=== PATIENT | male | born 2000 | race Two or more races ===

== ENCOUNTER 2024-07-14 11:37 | Inpatient (IN) ==
[2024-07-14] MEDS: SODIUM CHLORIDE 0.9% 1,000 ML IV SCH (11:55)
[2024-07-14 12:01] LABS: Base Excess VBG -0.5 mEq/L; HCO3 VBG 24 mmol/L; Oxygen Saturation VBG 86.7 %; PCO2 VBG 39 mmHg (38-50); PO2 VBG 49 mmHg
--- NOTE | 2024-07-14 12:02 | Emergency Department Note ---
Impression & Plan Intentional poisoning by anti-common cold drug, Suicidal overdose, Hypokalemia with normal pH ED Provider Note NAME: DEMARIO MERINO AGE: 24 SEX: M : 2000 ARRIVES VIA: Ambulance INFORMANT: Patient, EMS personnel, the police ED PROVIDER(S): Orion Sheldon DO CHIEF COMPLAINT: Overdose HPI: The patient is a 24-year-old male who is a student at [employer] who presented to the emergency department for an evaluation after an intentional overdose. The patient was last seen with friends at approximately 08 100 this morning. Then sometime between 08 110 30 the patient took an unknown amount of [id number] medications in an attempt to hurt himself. The patient sent a text message voicing his intention to some friends. They called 911. The police arrived and sewed it prehospital personnel. The patient arrived at the emergency department for further evaluation. There was no reported vomiting. The patient has been obtunded ever since and is not able to give much history. The patient took an unknown amount of melatonin 5 mg. He also took what was assumed to be 2400 mg of Unisom. The patient has no previous medical history. The patient had no seizure. There was no other medications found on scene. The patient did have a suicide note that the police brought to the emergency department. ROS: See above HPI for pertinent positives & negatives. A total of 10 systems reviewed and were otherwise negative. PAST MEDICAL HISTORY: See Below PAST SURGICAL HISTORY: See Below FAMILY HISTORY: See Below SOCIAL HISTORY: See Below HOME MEDICATIONS: See Below ALLERGIES: See Below VITALS: See Below PHYSICAL EXAMINATION: GENERAL: The patient is awake and looking around the room. He does not follow commands or answer questions. EYES: The conjunctivae are injected bilaterally. The pupils are round and reactive. There is nystagmus noted in both horizontal directions. EARS, NOSE, MOUTH AND THROAT: The nose is without any evidence of any deformity. Mucous membranes are dry. NECK: The neck is nontender and supple. RESPIRATORY: Normal respiratory effort is noted there is no evidence of wheezing rhonchi or rales CARDIOVASCULAR: Tachycardic but regular heart sounds were noted to auscultation. There is no definite murmur. GASTROINTESTINAL: The abdomen is soft. Abdomen is nontender. MUSCULOSKELETAL/EXTREMITIES: There is no evidence of gross deformity full range of motion is noted in the hips and shoulders. SKIN: There is no obvious evidence of any rash. There are no petechiae, pallor or cyanosis noted. NEUROLOGIC: Patient is awake and looking around the room. He does not answer questions. I am unable to assess orientation at this time. Patellar tendon reflexes were 1+ bilaterally. MEDICAL DECISION MAKING: The patient is a 24-year-old male who presented to the emergency department for an evaluation. The patient suffered a Benadryl overdose prior to arrival. The patient was last seen at around 08 100. He sent a text message about his intention to overdose around 10 30 this morning. He was brought to the emergency department immediately. The patient was very obtunded showing signs of Benadryl toxicity. Workup was undertaken. The patient was treated with IV fluids. He was also treated with IV Ativan and Keppra in the emergency department. He was treated with the antiseizure medications after having a seizure while CAT scan. He was further treated with IV fluid boluses. I discussed his case with Poison Control Center. They did recommend magnesium as well as potassium replacement. He was further treated with these medications. I discussed his condition with the blacksmith apprentice. He was evaluated in the emergency department by the blacksmith apprentice. I also discussed his condition with the on-call [facility] hospitalist. Triage Nursing notes reviewed. Prior medical records reviewed Vital Signs: reviewed and remarkable for tachycardia cardia. Differential diagnosis: Overdose, toxicologic, infection, hypoglycemia, electrolyte abnormalities, cardiac sources, intracerebral event, neurologic, trauma, as well as other pathologies. ER treatment provided: See below Diagnostics interpreted by me: ECG: EKG was obtained in the emergency department. My interpretation is sinus tachycardia at [address] segment abnormalities were noted. QTc was 397 ms. No previous tracing was available. A prehospital EKG was reviewed. My interpretation is sinus tachycardia at [address] abnormalities were noted. This compares similar to the tracing obtained in the emergency department. Cardiac Monitoring: An order was placed for continuous cardiac monitoring. The monitor shows a rate of 128 bpm with sinus tachycardia. Laboratory studies: As stated above and show below. Imaging studies: See below. Radiographic imaging was reviewed by myself Consultation(s): I discussed this case with Dr. Medel who is on-call for the ICU. I discussed this case with Dr. Bell who is on-call for the [facility] hospitalist group. ED COURSE: Procedures: none Critical Care: I have personally spent greater than 65 minutes of critical care time in the direct management of this patient. This includes bedside care, interpretation of diagnostic studies, and testing, discussion with consultants, patient, and family members, and other required patient management activities. This 65 minutes is in excess of all separately billable procedures. Past Med/Surg History Problem List (Updated 07/14/24 @ 16:40 by Orion Sheldon DO) Hypokalemia with normal pH (Acute) Suicidal overdose (Acute) Intentional poisoning by anti-common cold drug (Acute) Social History Smoking Status: Unknown if ever smoked Allergies Allergies Allergy/AdvReac Type Severity Reaction Status Date / Time Unable to Assess Allergy Unverified 07/14/24 13:37 Home Meds Home Medications Medication Instructions Recorded Confirmed No Known Home Medications 07/14/24 07/14/24 Results & Data (ED) Vital Signs Vital Signs - 24 hr 07/14/24 11:40 07/14/24 11:50 07/14/24 11:59 Pulse Rate 153 H 157 H Pulse Rate [Left Finger] 146 H Pulse Rate from SpO2 Sensor Pulse Rhythm Regular Regular Pulse Rhythm [Left Finger] Regular Pulse Strength [Left Finger] Normal Respiratory Rate 25 H 13 22 Respiratory Effort / Characteristics Spontaneous Non-Labored Spontaneous Respiratory Depth Normal Respiratory Pattern Regular Regular Blood Pressure 157/102 H Blood Pressure [Left Arm] 161/104 H Blood Pressure Mean 120 Blood Pressure Mean [Left Arm] 123 Blood Pressure Position [Left Arm] Sitting Pulse Oximetry 99 100 Oxygen Delivery Method Room Air Room Air Room Air Sepsis Recent Fever Within 48 Hours Yes Sepsis New/Unexplained Change in Mental Status Yes Sepsis Action Taken by Nursing No Action Required 07/14/24 12:00 07/14/24 12:15 07/14/24 12:30 Pulse Rate 142 H 149 H 149 H Pulse Rate [Left Finger] Pulse Rate from SpO2 Sensor 143 H 149 H 149 H Pulse Rhythm Pulse Rhythm [Left Finger] Pulse Strength [Left Finger] Respiratory Rate 25 H 28 H 25 H Respiratory Effort / Characteristics Respiratory Depth Respiratory Pattern Blood Pressure 161/106 H 156/117 H 156/106 H Blood Pressure [Left Arm] Blood Pressure Mean 120 119 122 Blood Pressure Mean [Left Arm] Blood Pressure Position [Left Arm] Pulse Oximetry 100 100 99 Oxygen Delivery Method Sepsis Recent Fever Within 48 Hours Sepsis New/Unexplained Change in Mental Status Sepsis Action Taken by Nursing 07/14/24 12:51 07/14/24 13:00 07/14/24 13:11 Pulse Rate 173 H 164 H 160 H Pulse Rate [Left Finger] Pulse Rate from SpO2 Sensor 165 H Pulse Rhythm Pulse Rhythm [Left Finger] Pulse Strength [Left Finger] Respiratory Rate 33 H Respiratory Effort / Characteristics Respiratory Depth Respiratory Pattern Blood Pressure 150/86 H 146/89 H Blood Pressure [Left Arm] Blood Pressure Mean 107 108 Blood Pressure Mean [Left Arm] Blood Pressure Position [Left Arm] Pulse Oximetry 93 Oxygen Delivery Method Sepsis Recent Fever Within 48 Hours Sepsis New/Unexplained Change in Mental Status Sepsis Action Taken by Nursing Laboratory Data 07/14/24 11:52 07/14/24 11:52 Lab Results 07/14/24 07/14/24 07/14/24 Range/Units 11:52 11:59 12:20 WBC 7.97 (4.8-10.8) K/ul RBC 5.43 (4.70-6.10) M/uL Hgb 16.5 (14.0-18.0) g/dl Hct 45.4 (42.0-52.0) % MCV 83.6 (80.0-100.0) fL MCH 30.4 (25.0-34.0) pg MCHC 36.3 H (32.0-36.0) g/dL RDW Std Deviation 35.1 L (36.4-46.3) fL RDW Coeff of [place] 11.6 (11.5-14.5) % Plt Count 240 (130-400) K/uL MPV 9.0 L (9.4-12.4) fL Immature Gran % (Auto) 0.1 % Neut % (Auto) 83.4 % Lymph % (Auto) 10.3 % [place] % (Auto) 5.6 % Eos % (Auto) 0.1 % Baso % (Auto) 0.5 % Neut # (Auto) 6.64 H (1.40-6.50) K/uL Lymph # (Auto) 0.82 L (1.20-3.40) K/uL [place] # (Auto) 0.45 (0.11-0.59) K/uL Eos # (Auto) 0.01 (0.00-0.50) K/uL Baso # (Auto) 0.04 (0.00-0.20) K/uL Immature Gran # (Auto) 0.01 (0.01-0.20) K/uL PT 11.7 (9.0-12.0) Seconds INR 1.1 (0.9-1.1) VBG pH 7.40 (7.36-7.41) VBG pCO2 39 (38-50) mmHg VBG pO2 49 mmHg VBG HCO3 24 mmol/L VBG O2 Saturation 86.7 % VBG Base Excess -0.5 mEq/L Sodium 141 (136-145) mmol/L Potassium 3.3 L (3.5-5.1) mmol/L Chloride 106 (98-107) mmol/L Carbon Dioxide 25 (21-32) mmol/L Anion Gap 10 (3-11) BUN 10 (6-23) mg/dl Creatinine 1.01 (0.6-1.4) mg/dl Est Cr Clr Drug Dosing Not Reportable eGFR 107.84 BUN/Creatinine Ratio 9.9 L (10-20) Glucose 105 H (70-99(Fasting)) mg/dl POC Glucose 104 H (70-99) mg/dl Calcium 9.7 (8.6-10.3) mg/dl Magnesium 2.0 (1.7-2.4) mg/dl Total Bilirubin 0.7 (0.2-1.0) mg/dl AST 17 (13-39) U/L ALT 15 (7-52) U/L Alkaline Phosphatase 64 (34-104) U/L Total Creatine Kinase 85 (30-223) U/L Troponin I High Sens < 2.3 (0-20) pg/ml Total Protein 7.8 (6.0-8.3) gm/dl Albumin 5.1 H (3.4-5.0) gm/dl Globulin 2.7 (2.5-4.0) gm/dl Albumin/Globulin Ratio 1.9 (0.9-2) Lipase 9 L (11-82) U/L Urine Color Yellow Urine Appearance Clear (Clear) Urine pH 6.5 (4.5-7.5) Ur Specific [place] 1.007 (1.000-1.030) Urine Protein Negative (Negative) Urine Glucose (UA) Negative (Negative) Urine Ketones Trace H (Negative) Urine Blood Negative (Negative) Urine Nitrite Negative (Negative) Urine Bilirubin Negative (Negative) Urine Urobilinogen Negative (Negative) Ur Leukocyte Esterase Negative (Negative) Salicylates < 3.0 L (3.0-30) mg/dl Urine Opiates Screen Neg (Neg) Ur Methadone, Qual Neg (Neg) Urine Fentanyl Screen Neg (Neg) Acetaminophen < 3 L (10-30) ug/ml Urine Barbiturates Neg (Neg) Ur Phencyclidine (PCP) Neg (Neg) U Amphetamin/Meth Scrn Neg (Neg) MDMA (Ecstasy) Screen Neg (Neg) U Benzodiazepines Scrn Neg (Neg) Ur Cocaine Metabolite Neg (Neg) U Marijuana (THC) Screen Pos H (Neg) Ethyl Alcohol mg/dL < 10.0 (<10.0) mg/dl Administered Medications Discontinued Medications Charcoal (Charcoal, Activated Liq 25 Gm/120 Ml Tube) Confirm Administered Dose 50 gm PO .STK-MED ONE Stop: 07/14/24 12:58 Last Admin: 07/14/24 13:13 Dose: 50 gm Documented By: LESLIE Sodium Chloride (Nss) 1,000 mls @ 999 mls/hr IV .Q1H1M GISELLA Stop: 07/14/24 12:45 Last Infusion: 07/14/24 13:14 Dose: Infused Documented By: Admin: 07/14/24 11:55 Dose: 999 mls/hr Documented By: LESLIE Potassium Chloride (K Levy / Wtr) 10 meq in 100 mls @ 100 mls/hr IV ONE ONE Stop: 07/14/24 13:44 Last Infusion: 07/14/24 16:16 Dose: Infused Documented By: Admin: 07/14/24 13:07 Dose: 100 mls/hr Documented By: LESLIE Sodium Chloride (Nss) 1,000 mls @ 999 mls/hr IV .Q1H1M ONE Stop: 07/14/24 13:56 Last Infusion: 07/14/24 14:11 Dose: Infused Documented By: Admin: 07/14/24 13:07 Dose: 999 mls/hr Documented By: LESLIE Sodium Chloride (Nss) 1,000 mls @ 999 mls/hr IV .Q1H1M ONE Stop: 07/14/24 13:58 Last Infusion: 07/14/24 16:16 Dose: Infused Documented By: Admin: 07/14/24 13:10 Dose: 999 mls/hr Documented By: LESLIE Magnesium Sulfate/Dextrose (Magnesium Sulfate / D5w) 1 gm in 100 mls @ 100 mls/hr IV NOW STA Stop: 07/14/24 14:00 Last Infusion: 07/14/24 16:16 Dose: Infused Documented By: Admin: 07/14/24 13:07 Dose: 100 mls/hr Documented By: LESLIE Potassium Chloride (K Levy / Wtr) 10 meq in 100 mls @ 100 mls/hr IV ONE ONE Stop: 07/14/24 14:00 Last Admin: 07/14/24 16:18 Dose: Not Given Documented By: OMKAR Levetiracetam (Levetiracetam 500 Mg/5 Ml Vial) Confirm Administered Dose 2,500 mg IV .STK-MED ONE Stop: 07/14/24 12:52 Last Admin: 07/14/24 13:13 Dose: Not Given Documented By: LESLIE Levetiracetam (Levetiracetam 500 Mg/5 Ml Vial) 2,500 mg IV NOW STA Stop: 07/14/24 12:59 Last Admin: 07/14/24 13:04 Dose: 2,500 mg Documented By: LESLIE Lorazepam (Lorazepam 1 Mg/1 Ml Syr Ed Inj Use) Confirm Administered Dose 2 mg .ROUTE .STK-MED ONE Stop: 07/14/24 12:50 Last Admin: 07/14/24 13:02 Dose: 1 mg Documented By: LESLIE Lorazepam (Lorazepam 2 Mg/1 Ml Vial) 1 mg IV NOW STA Stop: 07/14/24 13:02 Last Admin: 07/14/24 12:56 Dose: 1 mg Documented By: LESLIE Lorazepam (Lorazepam 2 Mg/1 Ml Vial) 1 mg IV NOW STA Stop: 07/14/24 14:17 Last Admin: 07/14/24 14:28 Dose: 1 mg Documented By: OMKAR Imaging Data Attestation: I personally reviewed and interpreted this imaging study as follows: My Impression: 1 view chest x-ray was obtained in the emergency department. My interpretation is no free air or definite infiltrate, final report below. CT the brain was obtained in the emergency department. My interpretation is no intracranial hemorrhage or mass effect, final report below. Radiologist's Impression: Chest X-Ray 07/14/24 11:40 XR chest 1V portable CLINICAL HISTORY: Overdose. COMPARISON STUDY: Chest radiograph July 18, 2023. FINDINGS: Lung volumes are normal. Lungs are clear. There is no pneumothorax or pleural effusion. Cardiac size is normal. Mediastinal contours are normal. There is no evidence for pulmonary edema. IMPRESSION: No acute cardiopulmonary findings. ACT 112: Negative or not required by law. Electronically signed by: Nhan Woodall M.D. 07/14/2024 1:[address] 07/14/24 12:02 CT SCAN OF THE BRAIN WITHOUT IV CONTRAST CLINICAL HISTORY: Change in mental status. COMPARISON STUDY: No priors. TECHNIQUE: Unenhanced axial CT scan of the brain is performed from the vertex to the skull base. A dose lowering technique was utilized adhering to the principles of ALARA. CT DOSE: 625.8 mGy.cm FINDINGS: Brain parenchyma: The brain parenchyma is normal in appearance. There is no hemorrhage, mass effect, or evidence of acute territorial ischemia by CT criteria. Phillips-white matter differentiation is preserved. No extra-axial fluid collection is seen. Ventricles, sulci, cisterns: Normal in configuration. Intracranial vasculature: The visualized intracranial vasculature at the skull base is normal in appearance. Calvarium: Unremarkable. Sinuses and mastoids: The visualized paranasal sinuses are clear. The mastoid air cells are well pneumatized. Orbits: The bony orbits are grossly intact. IMPRESSION: No acute intracranial abnormality. ACT 112: Negative or not required by law. Electronically signed by: Randall Tatum M.D. 07/14/2024 1:07 PM Discharge Plan Visit Data Chief Complaint: Overdose (Intentional) Stated Complaint: OVERDOSE ED Provider: Orion Sheldon Discharge Problem: Intentional poisoning by anti-common cold drug, Suicidal overdose, Hypokalemia with normal pH Patient Disposition: Admitted As Inpatient Discharge Instructions Interventions: ED Discharge Assessment Last Done: 07/14/24 13:48 Discharge Problem: Suicidal overdose Qualifiers: Encounter type: initial encounter Qualified Code(s): T50.902A - Poisoning by unspecified drugs, medicaments and biological substances, intentional self-harm, initial encounter
[2024-07-14 12:05] LABS: Basophils # (auto) 0.04 K/uL (0.00-0.20); Basophils % (auto) 0.5 %; Eosinophils # (auto) 0.01 K/uL (0.00-0.50); Eosinophils % (auto) 0.1 %; Hematocrit (blood only) 45.4 % (42.0-52.0); Hemoglobin 16.5 g/dl (14.0-18.0); Immature Granulocytes # (auto) 0.01 K/uL (0.01-0.20); Immature Granulocytes % (auto) 0.1 %; Lymphocytes # (auto) 0.82 K/uL (1.20-3.40); Lymphocytes % (auto) 10.3 %; Mean Corpuscular Hemoglobin 30.4 pg (25.0-34.0); Mean Corpuscular Hgb Conc 36.3 g/dL (32.0-36.0); Mean Corpuscular Volume 83.6 fL (80.0-100.0); Monocytes # (auto) 0.45 K/uL (0.11-0.59); Monocytes % (auto) 5.6 %; Neutrophils # (auto) 6.64 K/uL (1.40-6.50); Neutrophils % (auto) 83.4 %; Platelet Count 240 K/uL (130-400); RDW Coefficient of Variation 11.6 % (11.5-14.5); RDW Standard Deviation 35.1 fL (36.4-46.3); Red Blood Count 5.43 M/uL (4.70-6.10); White Blood Count 7.97 K/ul (4.8-10.8)
[2024-07-14 12:22] LABS: Alanine Aminotransferase 15 U/L (7-52); Albumin Globulin Ratio 1.9 (0.9-2); Albumin Level 5.1 gm/dl (3.4-5.0); Alkaline Phosphatase 64 U/L (34-104); Anion Gap 10 (3-11); Aspartate Aminotransferase 17 U/L (13-39); BUN Creatinine Ratio 9.9 (10-20); Bilirubin,Total 0.7 mg/dl (0.2-1.0); Blood Urea Nitrogen 10 mg/dl (6-23); Calcium 9.7 mg/dl (8.6-10.3); Carbon Dioxide 25 mmol/L (21-32); Chloride 106 mmol/L (98-107); Creatine Kinase 85 U/L (30-223); Globulin 2.7 gm/dl (2.5-4.0); Glucose 105 mg/dl (70-99(Fasting)); Lipase 9 U/L (11-82); Potassium 3.3 mmol/L (3.5-5.1); Sodium 141 mmol/L (136-145); Total Protein 7.8 gm/dl (6.0-8.3)
[2024-07-14 12:28] LABS: INR 1.1 (0.9-1.1); Prothrombin Time 11.7 Seconds (9.0-12.0); Troponin I High Sensitivity < 2.3 pg/ml (0-20)
[2024-07-14 12:33] LABS: Appearance Urine Clear (Clear); Bilirubin Urine Negative (Negative); Blood Urine Negative (Negative); Color Urine Yellow; Glucose Urine UA Negative (Negative); Ketones Urine Trace (Negative); Leukocyte Esterase Urine Negative (Negative); Nitrite Urine Negative (Negative); Protein Urine Negative (Negative); Specific Gravity Urine 1.007 (1.000-1.030); Urobilinogen Urine Negative (Negative); pH Urine 6.5 (4.5-7.5)
[2024-07-14 12:43] LABS: Acetaminophen < 3 ug/ml (10-30); Salicylate < 3.0 mg/dl (3.0-30)
[2024-07-14] MEDS: LORazepam 2 MG/1 ML VIAL IV STA ×3 (12:56→18:40)
[2024-07-14] MEDS: LORazepam 1 MG/1 ML SYR ED Inj Use ONE (13:02)
[2024-07-14] MEDS: levETIRAcetam 500 MG/5 ML VIAL IV STA (13:04)
[2024-07-14] MEDS: MAGNESIUM SULFATE / D5W 1 GM/100 ML BAG IV STA (13:07)
[2024-07-14] MEDS: POTASSIUM CHLORIDE / WTR 10 MEQ/100 ML PLCT IV ONE ×2 (13:07→16:18)
[2024-07-14] MEDS: SODIUM CHLORIDE 0.9% 1,000 ML IV ONE ×2 (13:07→13:10)
--- NOTE | 2024-07-14 13:09 | CT Scan Report ---
CT SCAN OF THE BRAIN WITHOUT IV CONTRAST CLINICAL HISTORY: Change in mental status. COMPARISON STUDY: No priors. TECHNIQUE: Unenhanced axial CT scan of the brain is performed from the vertex to the skull base. A d ose lowering technique was utilized adhering to the principles of ALARA. CT DOSE: 625.8 mGy.cm FINDINGS: Brain parenchyma: The brain parenchyma is normal in appearance. There is no hemorrhage, mass effect, or evidence of acute territorial ischemia by CT criteria. Phillips-white matter differentiation is preser mahamed. No extra-axial fluid collection is seen. Ventricles, sulci, cisterns: Normal in configuration. Intracranial vasculature: The visualized intracranial vasculature at the skull base is normal in appe arance. Calvarium: Unremarkable. Sinuses and mastoids: The visualized paranasal sinuses are clear. The mastoid air cells are well pneu matized. Orbits: The bony orbits are grossly intact. IMPRESSION: No acute intracranial abnormality. ACT 112: Negative or not required by law. Electronically signed by: Randall Tatum M.D. 07/14/2024 1:07 PM
--- NOTE | 2024-07-14 13:10 | XRay Report ---
XR chest 1V portable CLINICAL HISTORY: Overdose. COMPARISON STUDY: Chest radiograph July 18, 2023. FINDINGS: Lung volumes are normal. Lungs are clear. There is no pneumothorax or pleural effusion. Car diac size is normal. Mediastinal contours are normal. There is no evidence for pulmonary edema. IMPRESSION: No acute cardiopulmonary findings. ACT 112: Negative or not required by law. Electronically signed by: Nhan Woodall M.D. 07/14/2024 1:08 PM
--- NOTE | 2024-07-14 13:10 | History & Physical Report ---
Date of Service July 14, 2024 Assessment & Plan (1) Intentional poisoning by anti-common cold drug: Plan: Overdose of diphenhydramine suspected 2400mg in additional to melatonin Admit to ICU for end todal CO2 monitoring one to one Poison control contacted (2) Suicidal overdose: Plan: Consult psychiatry whenever patient more awake (3) Seizure: Plan: Lorazepam PRN, seizure protocol Seizure protocol CT head in the ER within normal limits Keppra and lorazepam given in the ER, no further Keppra recommended at this time Plan VTE Prophylaxis - deferred to ICU team Diet - NPO Disposition - admit to ICU Admission and Anticipated Discharge Date Admission Date: July 14, 2024 History of Present Illness Chief Complaint: Intentional overdose Primary Care Provider: Brandon Jamison MD Heber Blair is a 24 year old male who presents to the ER obtunded after intentional overdose of suspected 2400mg diphenhydramine (1.5 empty bottles) and unknown quantity of 5mg melatonin tablets. Unable to get any history from the patient. Per ER provider patient last see well around 8:00am this morning. Overdose occurred between 8-10am he took an overdose of medications in an attempt to harm himself with text messages voicing his intention to some friend s. 1.5 bottles of Unisom found at the scene which adds up to a total 2400mg diphenhydramine PO in addition to a melatonin 5mg PO bottle which was not empty. While in the CT in the ER the patient had a seizure. EMS also found a suicide note the patient had written. Allergies Allergy/AdvReac Type Severity Reaction Status Date / Time Unable to Assess Allergy Unverified 07/14/24 13:37 Home Medications Medication Instructions Recorded Confirmed Type No Known Home Medications 07/14/24 07/14/24 History Past Med/Surg History Problem List (Updated 07/15/24 @ 08:10 by Victor Manuel Bell MD) Seizure Hypokalemia with normal pH (Acute) Suicidal overdose (Acute) Intentional poisoning by anti-common cold drug (Acute) Social History Smoking Status: Unknown if ever smoked Review of Systems Review of Systems: Unobtainable due to reduced consciousness Physical Exam Constitutional: WD/WN, vitals as above Eyes: PERRL, conjunctivae normal, anicteric sclerae ENMT: Mouth: + dry oral mucous membranes Respiratory: normal respiratory effort, lungs clear to auscultation Cardiovascular: Rate/Rhythm: regular rhythm and + tachycardic Heart Sounds: no murmur Extremities: normal capillary refill; no calf tenderness and no pedal edema Gastrointestinal (Abdomen): normal bowel sounds, soft, nontender, no hepatosplenomegaly Skin: no rashes, warm and dry Neurologic: + confused; + does not move all extremit ies and + not awake (GCS 8 [id number]) Results & Data Results & Data Vital Signs (Past 12 Hours) Vital Signs Pulse Pulse Resp BP BP Pulse Ox O2 Del Method 07/14/24 12:30 149 H 25 H 156/106 H 99 07/14/24 12:15 149 H 28 H 156/117 H 100 07/14/24 12:00 142 H 25 H 161/106 H 100 07/14/24 11:59 146 H 22 161/104 H 100 Room Air 07/14/24 11:50 157 H 13 157/102 H 99 Room Air 07/14/24 11:40 153 H 25 H Room Air Laboratory Results Abnormal lab results 07/14/24 07/14/24 07/14/24 Range/Units 11:52 11:59 12:20 MCHC 36.3 H (32.0-36.0) g/dL RDW Std Deviation 35.1 L (36.4-46.3) fL MPV 9.0 L (9.4-12.4) fL Neut # (Auto) 6.64 H (1.40-6.50) K/uL Lymph # (Auto) 0.82 L (1.20-3.40) K/uL Potassium 3.3 L (3.5-5.1) mmol/L BUN/Creatinine Ratio 9.9 L (10-20) Glucose 105 H (70-99(Fasting)) mg/dl POC Glucose 104 H (70-99) mg/dl Albumin 5.1 H (3.4-5.0) gm/dl Lipase 9 L (11-82) U/L Urine Ketones Trace H (Negative) Salicylates < 3.0 L (3.0-30) mg/dl Acetaminophen < 3 L (10-30) ug/ml Diagnostic Findings CT SCAN OF THE BRAIN WITHOUT IV CONTRAST CLINICAL HISTORY: Change in mental status. COMPARISON STUDY: No priors. TECHNIQUE: Unenhanced axial CT scan of the brain is performed from the vertex to the skull base. A dose lowering technique was utilized adhering to the principles of ALARA. CT DOSE: 625.8 mGy.cm FINDINGS: Brain parenchyma: The brain parenchyma is normal in appearance. There is no hemorrhage, mass effect, or evidence of acute territorial ischemia by CT criteria. Phillips-white matter differentiation is preserved. No extra-axial fluid collection is seen. Ventricles, sulci, cisterns: Normal in configuration. Intracranial vasculature: The visualized intracranial vasculature at the skull base is normal in appearance. Calvarium: Unremarkable. Sinuses and mastoids: The visualized paranasal sinuses are clear. The mastoid air cells are well pneumatized. Orbits: The bony orbits are grossly intact. IMPRESSION: No acute intracranial abnormality. XR chest 1V portable CLINICAL HISTORY: Overdose. COMPARISON STUDY: Chest radiograph July 18, 2023. FINDINGS: Lung volumes are normal. Lungs are clear. There is no pneumothorax or pleural effusion. Cardiac size is normal. Mediastinal contours are normal. There is no evidence for pulmonary edema. IMPRESSION: No acute cardiopulmonary findings. Medications Administered ER Medications Given: Normal saline 1L bolus Potassium chloride 10 meq IV Lorazepam 1mg IV Normal saline 1L bolus Charcoal 50 g PO Keppra 2500mg IV Normal saline 1L bolus Magnesium sulfate 1g IV Lorazepam 1mg IV ECG Rate (beats per minute): 154 Rhythm: sinus tachycardia Findings: no acute ischemic change Comparison ECG Date: no prior available Code Status & VTE Plan Code Status Full VTE Prophylaxis Plan VTE Prophylaxis will be ordered: Yes PG Care Time/CCT Total # of Minutes Spent Total Time Spent with Patient: Total time spent is greater than 50% in coordination of care (as documented) at patient's floor/unit and/or counseling patient: Coding Level of Care Code 39807 INT INP/OBS CARE 3/75MIN Diagnoses Intentional poisoning by anti-common cold drug T48.5X2A Suicidal overdose T50.902A Encounter type: initial encounter Seizure R56.9 (2) Suicidal overdose Encounter type: initial encounter Qualified Code(s): T50.902A - Poisoning by unspecified drugs, medicaments and biological substances, intentional self-harm, initial encounter
[2024-07-14] MEDS: levETIRAcetam 500 MG/5 ML VIAL IV ONE (13:13)
[2024-07-14] MEDS: CHARCOAL, ACTIVATED LIQ 25 GM/120 ML TUBE PO ONE (13:13)
[2024-07-14 13:22] LABS: Amphetamines+Metham, Urine Neg (Neg); Barbiturates, Urine Neg (Neg); Benzodiazepine, Urine Neg (Neg); Cocaine, Urine Neg (Neg); Fentanyl, Urine Neg (Neg); MDMA (Ecstacy), Urine Neg (Neg); Marijuana, Urine Pos (Neg); Methadone, Urine Neg (Neg); Opiate, Urine Neg (Neg); Phencyclidine, Urine Neg (Neg)
[2024-07-14] MEDS ORDERED: CHARCOAL, ACTIVATED LIQ 25 GM/120 ML TUBE PO ONE (13:30)
[2024-07-14] MEDS ORDERED: LORazepam 1 MG/1 ML SYR ED Inj Use IV ONE (13:30)
--- NOTE | 2024-07-14 13:52 | Critical Care Consultation ---
Date of Consultation July 14, 2024 Assessment & Plan (1) Intentional poisoning by anti-common cold drug: Reason Critically Ill: Intentional drug overdose with intent of self-harm PLAN: Neuro: Acute encephalopathy Intentional overdose -ICU observation -Poison control contacted from emergency department -Benzodiazepines to control psychomotor agitation -Not acidotic, no elevated anion gap, salicylate and acetaminophen are negative, will repeat acetaminophen; however, acetaminophen not listed as possible ingestion Resp: End-tidal CO2 monitoring CV: Tachycardia -Benzodiazepines and fluid resuscitation Fluids/Renal: Hypokalemia: Mild -Optimize electrolytes given IV potassium chloride and magnesium sulfate ID: No indication for anti-infectives GI/Nutrition: 50 g activated charcoal given secondary to pill fragments in GI aspirate Heme: DVT prophylaxis: Subcu Lovenox Endocrine: ICU hyperglycemia protocol Vascular access: Peripheral IVs Code Status: Full code Disposition: ICU (2) Suicidal overdose: (3) Hypokalemia with normal pH: Supervising Physician Co-Signing Physician Notes I have personally spent 65 minutes of critical care time in the direct management of this patient. This is a life/limb threatening event. This includes time spent evaluating patient, direct bedside care, chart review, placing orders, interpretation of diagnostic studies, discussion with consultants, patient, and/or family members regarding treatment decisions, as well as other required patient management activities. This time is exclusive of all separately billable procedures, and teaching time and separate from and in addition to any other critical care service time. History of Present Illness Reason for Consultation: Intentional drug overdose History of Present Illness History is obtained from ED staff as well as primary care provider. 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 He has no significant medical history outside of isolated orthopedic injuries and no known prior mental health diagnoses. Please refer to emergency room notes for further details surrounding the events leading to his discovery. Briefly the patient was reportedly last seen normal at approximately 8:00 and then roughly around 10 AM the patient was noted to be sending strange text to friends indicating that he may have engaged in intentional hurtful behavior, authorities then performed a safety check and found the patient to be obtunded. Of pill bottles the patient took an unknown amount of melatonin and assumed to have consumed approximately 2400 mg of Unisom. While in the emergency department he was sent to CT scan which she reportedly had a seizure while in the CT scanner. He was brought back to the resuscitation bay and had 1 small episode of blue-colored emesis. Per report there was a suicide note left indicating this was intentional self-harm. I placed a temporary NG tube and suctioned about 250 mL of blue-colored fluid and possible pill fragments. Given possible pill fragments I instilled 50 g of activated charcoal with sorbitol and removed the NG tube. He was also tachycardic into the 170s and we administered 2 doses of 1 mg Ativan for psychomotor agitation. Allergies Allergy/AdvReac Type Severity Reaction Status Date / Time Unable to Assess Allergy Unverified 07/14/24 13:37 Home Medications Medication Instructions Recorded Confirmed Type No Known Home Medications 07/14/24 07/14/24 History Patient History Social History Smoking Status: Unknown if ever smoked Review of Systems Review of Systems: Unobtainable due to reduced consciousness Physical Exam Physical Exam: General: Glascow Coma Scale: Eyes: 4, Verbal 1, Motor 5, Total 10 Skin: Warm, dry, no perspiration Head: Atraumatic Ears, nose, mouth and throat: airway patent Cardiovascular: Normal peripheral perfusion, tachycardic S1-S2 Respiratory: no respiratory distress Gastrointestinal: Non distended Musculoskeletal: No deformity Results & Data Results & Data Vital Signs (Past 12 Hours) Vital Signs Pulse Pulse Resp BP BP Pulse Ox O2 Del Method 07/14/24 13:30 142 H 30 H 136/91 96 07/14/24 13:24 160 H 32 H 95 Room Air 07/14/24 13:11 160 H 07/14/24 13:00 164 H 33 H 146/89 H 93 07/14/24 12:51 173 H 150/86 H 07/14/24 12:30 149 H 25 H 156/106 H 99 07/14/24 12:15 149 H 28 H 156/117 H 100 07/14/24 12:00 142 H 25 H 161/106 H 100 07/14/24 11:59 146 H 22 161/104 H 100 Room Air 07/14/24 11:50 157 H 13 157/102 H 99 Room Air 07/14/24 11:40 153 H 25 H Room Air FiO2 07/14/24 13:30 07/14/24 13:24 21 07/14/24 13:11 07/14/24 13:00 07/14/24 12:51 07/14/24 12:30 07/14/24 12:15 07/14/24 12:00 07/14/24 11:59 07/14/24 11:50 07/14/24 11:40 Critical Care Results & Data Vital Signs (Past 12 Hours) Vital Signs Pulse Pulse Resp BP BP Pulse Ox O2 Del Method 07/14/24 13:48 142 H 30 H 136/91 96 Room Air 07/14/24 13:30 142 H 30 H 136/91 96 07/14/24 13:24 160 H 32 H 95 Room Air 07/14/24 13:11 160 H 07/14/24 13:00 164 H 33 H 146/89 H 93 07/14/24 12:51 173 H 150/86 H 07/14/24 12:30 149 H 25 H 156/106 H 99 07/14/24 12:15 149 H 28 H 156/117 H 100 07/14/24 12:00 142 H 25 H 161/106 H 100 07/14/24 11:59 146 H 22 161/104 H 100 Room Air 07/14/24 11:50 157 H 13 157/102 H 99 Room Air 07/14/24 11:40 153 H 25 H Room Air FiO2 07/14/24 13:48 07/14/24 13:30 07/14/24 13:24 21 07/14/24 13:11 07/14/24 13:00 07/14/24 12:51 07/14/24 12:30 07/14/24 12:15 07/14/24 12:00 07/14/24 11:59 07/14/24 11:50 07/14/24 11:40 Lab & Micro Results (Past 24 Hours) RBC 5.43 M/uL (4.70-6.10) 07/14/24 WBC 7.97 K/ul (4.8-10.8) 07/14/24 Hgb 16.5 g/dl (14.0-18.0) 07/14/24 Hct 45.4 % (42.0-52.0) 07/14/24 MCV 83.6 fL (80.0-100.0) 07/14/24 MCH 30.4 pg (25.0-34.0) 07/14/24 MCHC 36.3 g/dL (32.0-36.0) H 07/14/24 RDW Standard Deviation 35.1 fL (36.4-46.3) L 07/14/24 RDW Coefficient of Variation 11.6 % (11.5-14.5) 07/14/24 Plt Count 240 K/uL (130-400) 07/14/24 MPV 9.0 fL (9.4-12.4) L 07/14/24 Neutrophils (%) (Auto) 83.4 % 07/14/24 Lymphocytes (%) (Auto) 10.3 % 07/14/24 Monocytes # (Auto) 0.45 K/uL (0.11-0.59) 07/14/24 Eosinophils # (Auto) 0.01 K/uL (0.00-0.50) 07/14/24 Immature Granulocyte % (Auto) 0.1 % 07/14/24 Neutrophils # (Auto) 6.64 K/uL (1.40-6.50) H 07/14/24 Lymphocytes # (Auto) 0.82 K/uL (1.20-3.40) L 07/14/24 Monocytes # (Auto) 0.45 K/uL (0.11-0.59) 07/14/24 Eosinophils # (Auto) 0.01 K/uL (0.00-0.50) 07/14/24 Basophils # (Auto) 0.04 K/uL (0.00-0.20) 07/14/24 Immature Granulocyte # (Auto) 0.01 K/uL (0.01-0.20) 4 Na 141 mmol/L (136-145) 07/14/24 K 3.3 mmol/L (3.5-5.1) L 07/14/24 Cl 106 mmol/L (98-107) 07/14/24 CO2 25 mmol/L (21-32) 07/14/24 Anion Gap 10 (3-11) 07/14/24 BUN 10 mg/dl (6-23) 07/14/24 Creatinine 1.01 mg/dl (0.6-1.4) 07/14/24 BUN/Creatinine Ratio 9.9 (10-20) L 07/14/24 Glu 105 mg/dl (70-99(Fasting)) H 07/14/24 Ca 9.7 mg/dl (8.6-10.3) 07/14/24 Total Bilirubin 0.7 mg/dl (0.2-1.0) 07/14/24 AST 17 U/L (13-39) 07/14/24 ALT 15 U/L (7-52) 07/14/24 Alkaline Phosphatase 64 U/L (34-104) 07/14/24 TP 7.8 gm/dl (6.0-8.3) 07/14/24 Albumin 5.1 gm/dl (3.4-5.0) H 07/14/24 Globulin 2.7 gm/dl (2.5-4.0) 07/14/24 Albumin/Globulin Ratio 1.9 (0.9-2) 07/14/24 Mg 2.0 mg/dl (1.7-2.4) 07/14/24 11:52 Calcium Level 9.7 mg/dl (8.6-10.3) 07/14/24 11:52 Prothromb Time International Ratio 1.1 (0.9-1.1) 07/14/24 11:5 2 Venous Blood pH 7.40 (7.36-7.41) 07/14/24 11:52 Venous Blood Partial Pressure CO2 39 mmHg (38-50) 07/14/24 11:5 2 Venous Blood Partial Pressure O2 49 mmHg 07/14/24 11:52 Venous Blood HCO3 24 mmol/L 07/14/24 11:52 Venous Blood Base Excess -0.5 mEq/L 07/14/24 11:52 Venous Blood Oxygen Saturation 86.7 % 07/14/24 11:52 Diagnostic Findings (Past 24 Hours) Chest X-Ray 07/14/24 11:40 XR chest 1V portable CLINICAL HISTORY: Overdose. COMPARISON STUDY: Chest radiograph July 18, 2023. FINDINGS: Lung volumes are normal. Lungs are clear. There is no pneumothorax or pleural effusion. Cardiac size is normal. Mediastinal contours are normal. There is no evidence for pulmonary edema. IMPRESSION: No acute cardiopulmonary findings. ACT 112: Negative or not required by law. Electronically signed by: Nhan Woodall M.D. 07/14/2024 1:[address] 07/14/24 12:02 CT SCAN OF THE BRAIN WITHOUT IV CONTRAST CLINICAL HISTORY: Change in mental status. COMPARISON STUDY: No priors. TECHNIQUE: Unenhanced axial CT scan of the brain is performed from the vertex to the skull base. A dose lowering technique was utilized adhering to the principles of ALARA. CT DOSE: 625.8 mGy.cm FINDINGS: Brain parenchyma: The brain parenchyma is normal in appearance. There is no hemorrhage, mass effect, or evidence of acute territorial ischemia by CT criteria. Phillips-white matter differentiation is preserved. No extra-axial fluid collection is seen. Ventricles, sulci, cisterns: Normal in configuration. Intracranial vasculature: The visualized intracranial vasculature at the skull base is normal in appearance. Calvarium: Unremarkable. Sinuses and mastoids: The visualized paranasal sinuses are clear. The mastoid air cells are well pneumatized. Orbits: The bony orbits are grossly intact. IMPRESSION: No acute intracranial abnormality. ACT 112: Negative or not required by law. Electronically signed by: Randall Tatum M.D. 07/14/2024 1:07 PM I & O Totals 24 Hours 07/13/24 07/14/24 07/15/24 06:59 06:59 06:59 Intake Total 1000 / 1000 Balance 1000 / 1000 Cumulative 07/14/24 11:33 thru 07/14/24 13:14 Intake Total 1000 Balance 1000 RT Ventilator Mngmt (Last Documented) Ventilator Ordered Settings Respiratory Rate 30 07/14/24 13:48 Fraction of Inspired Oxygen 21 07/14/24 13:24 Ventilator - PT Measurements Respiratory Rate 30 Coding Level of Care Code 62494 CRITICAL CARE 1ST 30-74M Diagnoses Intentional poisoning by anti-common cold drug T48.5X2A Suicidal overdose T50.902A Hypokalemia with normal pH E87.6
--- NOTE | 2024-07-14 16:36 | Electrocardiogram Report ---
Test Reason : Blood Pressure : */* mmHG Vent. Rate : 154 BPM Atrial Rate : 154 BPM P-R Int : 124 ms QRS Dur : 90 ms QT Int : 248 ms P-R-T Axes : 79 75 248 degrees QTcB Int : 397 ms Sinus tachycardia Abnormal ECG No previous ECGs available Confirmed by Kartik Alex ([id number]) on 07/14/2024 4:36:09 PM Referred By: REFERRED SELF Confirmed By: Kartik Alex
[2024-07-14] MEDS: ICU Protocol for HYPERglycemia SCH (16:38)
[2024-07-14] MEDS: LORazepam 2 MG/1 ML VIAL ONE (18:39)
[2024-07-14] MEDS: LORazepam 2 MG/1 ML VIAL IV PRN (21:37)
[2024-07-15 05:22] LABS: Basophils # (auto) 0.05 K/uL (0.00-0.20); Basophils % (auto) 0.5 %; Eosinophils # (auto) 0.04 K/uL (0.00-0.50); Eosinophils % (auto) 0.4 %; Hematocrit (blood only) 42.8 % (42.0-52.0); Immature Granulocytes # (auto) 0.03 K/uL (0.01-0.20); Immature Granulocytes % (auto) 0.3 %; Lymphocytes # (auto) 1.55 K/uL (1.20-3.40); Mean Corpuscular Hemoglobin 30.2 pg (25.0-34.0); Mean Corpuscular Volume 86.1 fL (80.0-100.0); Mean Platelet Volume 9.1 fL (9.4-12.4); Monocytes # (auto) 1.32 K/uL (0.11-0.59); Monocytes % (auto) 11.9 %; Neutrophils # (auto) 8.06 K/uL (1.40-6.50); Neutrophils % (auto) 72.9 %; Platelet Count 213 K/uL (130-400); RDW Coefficient of Variation 11.9 % (11.5-14.5); RDW Standard Deviation 37.2 fL (36.4-46.3); Red Blood Count 4.97 M/uL (4.70-6.10); White Blood Count 11.05 K/ul (4.8-10.8)
[2024-07-15 05:29] LABS: Albumin Level 4.5 gm/dl (3.4-5.0); BUN Creatinine Ratio 6.4 (10-20); Bilirubin,Total 0.6 mg/dl (0.2-1.0); Calcium 9.4 mg/dl (8.6-10.3); Creatinine Clr Calc Pharmacy 100.3 ml/min; Globulin 2.3 gm/dl (2.5-4.0); Phosphorus 3.8 mg/dl (2.5-4.9); Potassium 3.4 mmol/L (3.5-5.1); Total Protein 6.8 gm/dl (6.0-8.3)
[2024-07-15] MEDS: POTASSIUM CHLORIDE / WTR 10 MEQ/100 ML PLCT IV SCH (06:21)
--- NOTE | 2024-07-15 06:44 | Critical Care Progress Note ---
Date of Service July 15, 2024 Assessment & Plan (1) Intentional poisoning by anti-common cold drug: (2) Hypokalemia with normal pH: (3) Suicidal overdose: Plan Reason Critically Ill: Intentional drug overdose with intent of self-harm PLAN: Neuro: Acute encephalopathy Intentional overdose -ICU observation -Poison control contacted from emergency department -Benzodiazepines to control psychomotor agitation -Not acidotic, no elevated anion gap, salicylate and acetaminophen are negative Resp: End-tidal CO2 monitoring CV: Tachycardia improved overnight -Benzodiazepines and fluid resuscitation Fluids/Renal: Hypokalemia: Mild -Optimized electrolytes with IV potassium chloride and magnesium sulfate on admission ID: No indication for anti-infectives GI/Nutrition: - 50 g activated charcoal given secondary to pill fragments in GI aspirate on admission - reg diet today Heme: DVT prophylaxis: Subcu Lovenox Endocrine: ICU hyperglycemia protocol Psych: Will place psych consult as pt is waking up more through this morning Vascular access: Peripheral IVs Code Status: Full code Disposition: ICU for continued monitoring Admission and Anticipated Discharge Date Admission Date: July 14, 2024 Supervising Physician Co-Signing Physician Notes Dr. Vazquez was resident physician during care of patient. I separately evaluated patient for bowman portions of the history and the exam. I was present during the critical portion of medical decision making, and I discussed the case with the resident. I generally agree with the findings and plan. Patient cleared for downgrade from ICU. Mental health consult, patient cannot leave would require 302 given intentional overdose of self-harm. Subjective Pt is a 24 yo male with no significant past medical hx who presented to the hospital on 07/14 for intentional poisoning by OTC drug ingestion. Today, pt is sleeping comfortably this morning, no acute distress. Dad is present today to give more hx. He states overnight he was agitated at times pulling at the avery/lines and having some hallucinations but was finally able to go to sleep around 5am and has been resting comfortably since then. He states that their family is from [place] and that Heber is here in [place] to go to college at [employer]. 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 His dad states that he has never had a problem with mental health in the past, has never endorsed being depressed, and was acting seemingly totally normal when he talked to them on the phone two nights ago, before this incident happened. He states that he has a transgender sister that struggled with anxiety and depression and was hospitalized a few times for mental health concerns but otherwise no family hx of anxiety, depression, suicide, drug overdose or drug misuse, or bipolar. He states that Heber has a girlfriend of 8 years and seems to have good friend support, but does note that this semester has been particularly stressful for him and notes that they are aware that he has been struggling with bullying on social media. Review of Systems Review of Systems: Unobtainable due to cognitive status Physical Exam Physical Exam: General: Asleep, resting comfortably in no acute distress Resp: Lungs clear to auscultation bilaterally, no increased work of breathing Cardio: Regular rate and rhythm, no murmurs GI: Soft and nontender, nondistended, Skin: Warm, dry, no rashes on visible skin Results & Data Results & Data Vital Signs (Past 12 Hours) Vital Signs Temp Pulse Resp BP Pulse Ox 07/15/24 03:27 36.9 C 07/15/24 03:00 71 17 99 07/15/24 02:45 62 19 98 07/15/24 02:33 82 17 98 07/15/24 02:15 74 24 98 07/15/24 02:03 85 22 96 07/15/24 02:00 144/95 H 07/15/24 02:00 144/95 H 07/15/24 02:00 144/95 H 07/15/24 01:54 82 19 97 07/15/24 01:51 86 23 97 07/15/24 01:27 92 H 23 98 07/15/24 01:03 96 H 21 100 07/15/24 01:00 158/98 H 07/15/24 01:00 158/98 H 07/15/24 00:57 75 20 97 07/15/24 00:45 95 H 24 96 07/15/24 00:39 78 19 99 07/15/24 00:27 85 17 99 07/15/24 00:03 93 H 24 99 07/15/24 00:01 142/109 H 07/15/24 00:00 147/101 H 07/14/24 23:57 74 15 98 07/14/24 23:51 73 22 99 07/14/24 23:35 87 23 99 07/14/24 23:20 76 20 97 07/14/24 23:08 75 21 97 07/14/24 23:02 142/97 H 07/14/24 23:00 37 C 07/14/24 22:59 78 19 97 07/14/24 22:47 97 H 24 98 07/14/24 22:38 76 26 H 96 07/14/24 22:17 102 H 18 98 07/14/24 22:05 80 21 98 07/14/24 22:01 169/103 H 07/14/24 22:01 169/103 H 07/14/24 21:54 100 H 14 97 07/14/24 21:50 91 H 15 98 07/14/24 21:36 94 H 21 98 07/14/24 21:15 116 H 20 97 07/14/24 21:00 98 H 22 99 07/14/24 20:24 103 H 25 H 99 07/14/24 20:15 152/102 H 07/14/24 20:09 100 H 23 100 07/14/24 20:07 37.0 C 07/14/24 20:00 168/121 H 07/14/24 20:00 105 H 30 H 100 07/14/24 20:00 168/121 H 07/14/24 20:00 168/121 H 07/14/24 19:51 104 H 18 99 07/14/24 19:46 142/105 H 07/14/24 19:39 94 H 22 97 07/14/24 19:36 101 H 17 98 07/14/24 19:30 163/106 H 07/14/24 19:21 122 H 31 H 97 07/14/24 19:15 108 H 27 H 96 07/14/24 19:12 103 H 26 H 98 07/14/24 18:48 109 H 20 97 07/14/24 18:46 173/105 H 07/14/24 18:46 173/105 H Resident Activity Tracking Resident Involvement: Resident Care Provided Care Provided: Adult Hospital Medicine (3) Suicidal overdose Encounter type: initial encounter Qualified Code(s): T50.902A - Poisoning by unspecified drugs, medicaments and biological substances, intentional self-harm, initial encounter
[2024-07-15] MEDS: ENOXAPARIN INJ 40 MG/0.4 ML SYR SQ SCH (09:44)
--- NOTE | 2024-07-15 10:43 | Electrocardiogram Report ---
Test Reason : Blood Pressure : */* mmHG Vent. Rate : 64 BPM Atrial Rate : 64 BPM P-R Int : 124 ms QRS Dur : 94 ms QT Int : 424 ms P-R-T Axes : 74 70 50 degrees QTcB Int : 437 ms Normal sinus rhythm Normal ECG When compared with ECG of 14-Jul-2024 11:47, Vent. rate has decreased by [address] elevation has replaced ST depression in Inferior leads ST no longer depressed in Lateral leads T wave inversion no longer evident in Inferior leads T wave inversion no longer evident in Lateral leads Confirmed by Kartik Alex ([id number]) on 07/15/2024 10:42:48 AM Referred By: REFERRED SELF Confirmed By: Kartik Alex
--- NOTE | 2024-07-15 11:16 | Billing Data ---
Date of Service July 15, 2024 Coding Level of Care Code 49724 SUB INP/OBS CARE
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
--- NOTE | 2024-07-15 18:50 | Electrocardiogram Report ---
Test Reason : Blood Pressure : */* mmHG Vent. Rate : 123 BPM Atrial Rate : 123 BPM P-R Int : 138 ms QRS Dur : 84 ms QT Int : 332 ms P-R-T Axes : 60 65 56 degrees QTcB Int : 475 ms Sinus tachycardia Abnormal ECG When compared with ECG of 14-Jul-2024 11:47, T wave inversion less evident in Lateral leads Confirmed by Kartik Alex ([id number]) on 07/15/2024 6:50:21 PM Referred By: REFERRED SELF Confirmed By: Kartik Alex
[2024-07-16 08:00] LABS: Basophils # (auto) 0.06 K/uL (0.00-0.20); Basophils % (auto) 0.7 %; Eosinophils # (auto) 0.18 K/uL (0.00-0.50); Eosinophils % (auto) 2.1 %; Hemoglobin 15.9 g/dl (14.0-18.0); Immature Granulocytes # (auto) 0.01 K/uL (0.01-0.20); Immature Granulocytes % (auto) 0.1 %; Lymphocytes # (auto) 2.15 K/uL (1.20-3.40); Lymphocytes % (auto) 25.7 %; Mean Corpuscular Hemoglobin 30.2 pg (25.0-34.0); Mean Corpuscular Hgb Conc 35.3 g/dL (32.0-36.0); Mean Corpuscular Volume 85.4 fL (80.0-100.0); Mean Platelet Volume 9.6 fL (9.4-12.4); Monocytes # (auto) 1.14 K/uL (0.11-0.59); Monocytes % (auto) 13.6 %; Neutrophils # (auto) 4.84 K/uL (1.40-6.50); Neutrophils % (auto) 57.8 %; Platelet Count 234 K/uL (130-400); RDW Coefficient of Variation 11.9 % (11.5-14.5); Red Blood Count 5.27 M/uL (4.70-6.10); White Blood Count 8.38 K/ul (4.8-10.8)
[2024-07-16 08:37] LABS: Magnesium 2.1 mg/dl (1.7-2.4)
[2024-07-16 08:42] LABS: Phosphorus 4.3 mg/dl (2.5-4.9)
--- NOTE | 2024-07-16 13:17 | Hospitalist Progress Note ---
Date of Service July 15, 2024 Assessment & Plan (1) Intentional poisoning by anti-common cold drug: Plan: Overdose of diphenhydramine suspected 2400mg in additional to melatonin Admitted to ICU for end todal CO2 monitoring one to one Poison control contacted On 07/15, patient was cleared medically. Awaiting placement. (2) Suicidal overdose: Plan: Consult psychiatry whenever patient more awake (3) Seizure: Plan: Lorazepam PRN, seizure protocol Seizure protocol CT head in the ER within normal limits Keppra and lorazepam given in the ER, no further Keppra recommended at this time Plan VTE Prophylaxis - deferred to ICU team Admission and Anticipated Discharge Date Admission Date: July 14, 2024 Subjective 24 yo male reports no new symptoms. Review of Systems Review of Systems: All systems reviewed & are unremarkable except as noted in HPI & below Physical Exam Constitutional: WD/WN, vitals as above Eyes: PERRL, conjunctivae normal, anicteric sclerae Cardiovascular: Rate/Rhythm: regular rate and regular rhythm Heart Sounds: no murmur Extremities: normal capillary refill; no calf tenderness and no pedal edema Gastrointestinal (Abdomen): normal bowel sounds, soft, nontender, no hepatosplenomegaly Skin: no rashes, warm and dry Results & Data Results & Data Vital Signs (Past 12 Hours) Vital Signs Temp Pulse Resp BP Pulse Ox O2 Del Method 07/16/24 09:19 36.8 C 55 L 18 108/69 99 Room Air PG Care Time/CCT Total # of Minutes Spent Total Time Spent with Patient: Total time spent is greater than 50% in coordination of care (as documented) at patient's floor/unit and/or counseling patient: Coding Level of Care Code 62501 SUB INP/OBS CARE 2/35MIN Diagnoses Intentional poisoning by anti-common cold drug T48.5X2A Suicidal overdose T50.902A Encounter type: initial encounter Seizure R56.9 (2) Suicidal overdose Encounter type: initial encounter Qualified Code(s): T50.902A - Poisoning by unspecified drugs, medicaments and biological substances, intentional self-harm, initial encounter
[2024-07-16 13:57] LABS: Marijuana Quant, GCMS Urine 37 ng/mL (<5)
--- NOTE | 2024-07-16 14:18 | Discharge Summary ---
Discharge Summary Date of Service July 16, 2024 Principal Dx & Hospital Course #1 = Principal Diagnosis (1) Intentional poisoning by anti-common cold drug: Overdose of diphenhydramine suspected 2400mg in additional to melatonin Admitted to ICU for end todal CO2 monitoring one to one Poison control contacted On 07/15, patient was cleared medically. On 07/16 Patient will be discharged pending the COVID test. (2) Suicidal overdose: Appreciate input from psych (3) Seizure: Lorazepam PRN, seizure protocol Seizure protocol CT head in the ER within normal limits Keppra and lorazepam given in the ER, no further Keppra recommended at this time Admission HPI Per Admitting Provider Heber Blair is a 24 year old male who presents to the ER obtunded after intentional overdose of suspected 2400mg diphenhydramine (1.5 empty bottles) and unknown quantity of 5mg melatonin tablets. Unable to get any history from the patient. Per ER provider patient last see well around 8:00am this morning. Overdose occurred between 8-10am he took an overdose of medications in an attempt to harm himself with text messages voicing his intention to some friends. 1.5 bottles of Unisom found at the scene which adds up to a total 2400mg diphenhydramine PO in addition to a melatonin 5mg PO bottle which was not empty. While in the CT in the ER the patient had a seizure. EMS also found a suicide note the patient had written. Discharge Exam Constitutional WD/WN, vitals as above Eyes PERRL, conjunctivae normal, anicteric sclerae Cardiovascular Rate/Rhythm: regular rate and regular rhythm Heart Sounds: no murmur Extremities: normal capillary refill; no calf tenderness and no pedal edema Gastrointestinal (Abdomen) normal bowel sounds, soft, nontender, no hepatosplenomegaly Skin no rashes, warm and dry Discharge Plan Discharge Items Patient Disposition: Transfer [facility]al [facility] Fac Reason For Visit: INTENTIONAL OVERDOSE Discharge Diagnosis: intentional overdose Activity: Resume your previous activity Non-emergency contact: Primary Care Provider Call non-emergency contact if: you have any medication questions Follow-up/Referrals: Brandon Jamison MD [Primary Care Provider] - Diet: Regular Addtl Attending Provider Instructions: Discharged to [facility]. Please follow their discharge instructions. Pending Studies at Discharge: No Stand-Alone Forms: My [facility] Medications and DC Order Prescriptions: No Action No Known Home Medications Discharge Orders: Discharge Order (Routine); Ordered 07/16/24 Ordered By: Carlos Roy Admission Data Admit Date/Time: 07/14/24 13:18 Attending Provider: Carlos Roy Admit Provider: Victor Manuel Bell Primary Care Provider: Brandon Jamison Other Providers: Victor Manuel Bell; Davian Medel; Humaira Hutchinson Hospital Stay Data Consultations 07/14/24 12:59 ED Decision to Admit Stat 07/14/24 14:15 Consult Designer Routine 07/15/24 09:33 Consult Psychiatry Routine Diagnostic Imagining Performed 07/14/24 12:02 CT head/brain wo con Stat Discharge Instructions Given to Patient (Per Discharging Provider) Discharged to [facility]. Please follow their discharge instructions. Total Time Total Time Spent Total Time Spent (In Minutes): 32 Coding Level of Care Code 36181 INP/OBS DISCH >30 MIN Diagnoses Intentional poisoning by anti-common cold drug T48.5X2A Suicidal overdose T50.902A Encounter type: initial encounter Seizure R56.9
== END 2024-07-16 16:17 | DRG 917 ==
LOC: ED 11:37 → SUATTDRO 13:18 → 1E 13:18 → 2E 07-15 18:34

== ENCOUNTER 2024-07-16 15:47 | Inpatient (IN) ==
[2024-07-16] MEDS ORDERED: MAGNESIUM HYDROXIDE SUSP 30 ML UDC PO PRN (16:01)
[2024-07-16] MEDS ORDERED: hydrOXYzine HCl 25 MG TAB PO PRN ×2 (16:01)
[2024-07-16] MEDS ORDERED: ALUMINUM/MAGNESIUM SUSP 30 ML UDC PO PRN (16:01)
[2024-07-16] MEDS ORDERED: ACETAMINOPHEN 325 MG TAB PO PRN (16:01)
[2024-07-16] MEDS ORDERED: SODIUM CHLORIDE 0.65% NA SOLN 45 ML (OCEAN) PRN (16:01)
[2024-07-16] MEDS ORDERED: BISMUTH SUBSALICYLATE 262 MG CHEW PO PRN (16:01)
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
--- NOTE | 2024-07-18 21:37 | Psychiatric Progress Note ---
Date of Service July 18, 2024 Impression / Recommendations Impression 24 yo M with MDD (single episode, severe) in the context of significant stressors, admitted following a suicide attempt via intentional overdose on estimated 2400mg of Unisom. Has good insight and expresses an appropriate amount of regret over attempt and tearfulness about recent events in his life. Patient presents as improved today with future orientation & future planning. While this is promising, would benefit from being observed to ensure that this is not a "flight back to health" and will be sustained when discharged. Overall, I spent a total of 25 minutes with this case, including review of chart, direct evaluation of the patient, counseling the patient, interdisciplinary team meeting, risk assessment, and documentation. (1) Major depressive disorder, single episode, severe: (2) Suicidal overdose: Plan 07/19/24: no changes at this time. Will obtain collateral from parents tomorrow. 07/18/24: MNPR due to recent seizure Overall I spent a total of 80 minutes for this admission including review of chart records, review of labwork, direct evaluation of the patient, counseling the patient, ordering medication, risk assessment, discussion with the psychiatric liason RN and documentation in the electronic health record. Admit to [facility] ([facility]) on q15 min checks (behavioral with suicide precautions) for safety. The patient will participate in group, recreational, and milieu therapies and will be offered additional individual and family sessions as clinically appropriate. -Defer medication as this is likely an extreme stress reaction in the context of rather significant stressors. Evidence based recommendations are to consider an SSRI trial following recurrent episodes of MDD as roughly 40%-60% of depressive episodes are a single occurrence. WOuld likely benefit more from a therapeutic approach at this time. -Seizure precautions Inventory Assets Strengths: Social supports, positive family relationships, plays team sports Needs: safety and stabilization, additional coping skills, increased outpatient services Suicide Risk Level Suicide Risk Level: High-Moderate (q15 min suicide checks) Risk Factors Assessment Male: Yes : Yes Do You Have Access To A Gun?: No Health Problems: No Mental Health Diagnoses: Yes Substance Use Disorders: No Previous Attempt: No Family History of Suicide: No Previous Psychiatric Hospitalization: No Hopelessness: No Protective Factors Assessment Sabianist Beliefs: Yes : No Responsible for Young Children: No Employed: Yes Stable Relationships: Yes Supportive Family: Yes Good Rapport with Provider: Yes Absence of Any Risk Factors Above: No Interval History Identifying Information 24 yo M with MDD (single episode, severe) in the context of significant stressors, admitted following a suicide attempt via intentional overdose on estimated 2400mg of Unisom. Has good insight and expresses an appropriate amount of regret over attempt and tearfulness about recent events in his life. Chief Complaint "I started working on my safety plan, you want to see it?". Review of Systems Sleep Information Total Hours of Sleep: 6 Meal Information Percent Meal Consumed - Breakfast: 100 Percent Meal Consumed - Lunch: 100 Percent Meal Consumed - Dinner: 100 Subjective Subjective Patient was seen & assessed and interval progress reviewed with treatment team. Has been visible in the milieu, interacting with peers and staff appropriately. Participating meaningfully in groups. Observed to smile spontaneously and appropriately. Patient reports that he spoke to his girlfriend on the phone yesterday evening and that it was "a good conversation, it was difficult but it needed to be done". Says that they decided to take a break so they could each process recent events - acknowledges that this is needed for both of them. Parents came here from [place] and are described as very supportive - dad is flying back in the evening as sister is having surgery, but mom is staying until 07/30 (then will switch with dad). Parents own a home locally and he plans to stay there with mom initially once he is discharged. He has also already spoken to a new therapist he will be saying and is looking forward to working with her. Denies overt depression or anxiety - although feels sad when thinking or talking about recent events and effects on his relationship, is able to redirect himself appropriately. Physical Exam Mental Examination Appearance: Well Groomed Eye Contact: Maintains Eye Contact Motor Behavior: Unremarkable Speech: Normal Mood: Calm, Sad and Tearful Affect: Appropriate and Sad Thought Process: Intact Insight: Good Judgement: Good Psychiatric Orientation: oriented x 3 Apperance: appropriately dressed and appropriately groomed Eye Contact: good eye contact Motor Behavior: steady gait and station and no abnormal motor movements Speech: normal rate/rhythm/volume of speech Affect: euthymic affect and mood congruent with affect Mood: no depressed mood Thought Process: goal directed thought process, linear/logical thought process and clear/coherent thought process Thought Content: + guilt Homicidal Thoughts: denies homicidal thoughts Hallucinations: no auditory hallucinations and no visual hallucinations Cognition: recent memory grossly intact, remote memory grossly intact, attention grossly intact and language grossly intact Estimated Intelligence: consistent with education level Insight: good insight Judgment: + fair judgement Vital Signs (Past 24 Hours) Last Vital Signs Temp 36.8 C 07/18/24 06:50 Pulse 74 07/18/24 06:51 Resp 16 07/18/24 06:50 BP 113/80 07/18/24 06:51 Pulse Ox 99 07/16/24 16:38 O2 Del Method Room Air 07/16/24 16:38 Results & Data ([facility]) Current Inpatient Medications Current Inpatient Medications: Current Inpatient Medications Acetaminophen (Acetaminophen 325 Mg Tab) 650 mg PO Q4H PRN PRN Reason: Headache or Minor Fever Stop: 08/15/24 16:00 Al Hydrox/Mg Hydrox/Simethicone (Aluminum/Magnesium Susp 30 Ml Udc) 30 ml PO Q4H PRN PRN Reason: GI Upset Stop: 08/15/24 16:00 Bismuth Subsalicylate (Bismuth Subsalicylate 262 Mg Chew) 2 tab PO Q30M PRN PRN Reason: Loose Stool/Diarrhea Stop: 08/15/24 16:00 Hydroxyzine HCl (Hydroxyzine Hcl 25 Mg Tab) 50 mg PO HSZ PRN PRN Reason: Insomnia Stop: 08/15/24 16:00 Hydroxyzine HCl (Hydroxyzine Hcl 25 Mg Tab) 25 mg PO Q4H PRN PRN Reason: Anxiety Stop: 08/15/24 16:00 Magnesium Hydroxide (Magnesium Hydroxide Susp 30 Ml Udc) 30 ml PO DAILY PRN PRN Reason: Constipation Stop: 08/15/24 16:00 Sodium Chloride (Sodium Chloride 0.65% Na Soln 45 Ml ([place])) 1 - 2 sprays NA PRN PRN PRN Reason: Nasal Dryness/Congestion Stop: 08/15/24 16:00 Post Discharge Appointments Primary Care Physician Name Of Family Doctor/PCP: ELIZABETH (2) Suicidal overdose Encounter type: initial encounter Qualified Code(s): T50.902A - Poisoning by unspecified drugs, medicaments and biological substances, intentional self-harm, initial encounter
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
== END 2024-07-19 17:02 | disposition home or self-care (01) | DRG 885 ==
LOC: 3S 16:22
DX: T45.0X2A Poisoning by antiallergic and antiemetic drugs, intentional self-harm, initial encounter; F43.9 Reaction to severe stress, unspecified; F32.2 Major depressive disorder, single episode, severe without psychotic features